=== PATIENT | female | born 1990 | race Caucasian/White ===

== ENCOUNTER 2019-09-05 10:46 | Emergency (ER) | payer BC ==
[~2019-09-05] VITALS: Ht 160 cm; Wt 58.5 kg
[2019-09-05 11:02] VITALS: BP 133/61; Ht 160 cm; Wt 58.5 kg
== END 2019-09-05 14:47 | disposition left against medical advice (07) ==
LOC: ED 10:46
DX: Z53.1 Procedure and treatment not carried out because of patient's decision for reasons of belief and group pressure (principal)

== ENCOUNTER 2019-09-05 15:52 | Inpatient (IN) | payer BC ==
[~2019-09-05] VITALS: Ht 160 cm; Wt 59.0 kg
[2019-09-05 16:21] LABS: BASOPHIL % 0.1 % (0-2); PLATELET COUNT 216 x10^3mcL (130-400)
[2019-09-05 16:33] LABS: CALCIUM 8.6 mg/dL (8.5-10.1); CARBON DIOXIDE 27.6 mmol/L (21-32); CHLORIDE SERUM 93 mmol/L (98-107); CREATININE SERUM 0.9 mg/dL (0.6-1.0); GFR1 > 60 mL/min; GLUCOSE SERUM 123 mg/dL (74-106); POTASSIUM SERUM 3.4 mmol/L (3.5-5.1); SODIUM SERUM 129 mmol/L (136-145)
[2019-09-05 16:38] LABS: ALBUMIN 4.3 g/dL (3.4-5.0); ALKALINE PHOSPHATASE 73 U/L (46-116); ALT/SGPT 25 U/L (14-59); AST/SGOT 17 U/L (15-37); BILIRUBIN TOTAL 0.7 mg/dL (0.20-1.00); TOTAL PROTEIN, SERUM 7.5 g/dL (6.4-8.2)
[2019-09-05 16:55] LABS: microscopic required? YES; urine erythrocyte NEGATIVE (NEGATIVE)
[2019-09-05 23:17] VITALS: BP 109/81
[2019-09-06 05:53] VITALS: BP 99/63
[2019-09-06 07:16] LABS: BASOPHIL % 0.3 % (0-2); PLATELET COUNT 170 x10^3mcL (130-400)
[2019-09-06 07:33] LABS: ALKALINE PHOSPHATASE 55 U/L (46-116); ALT/SGPT 19 U/L (14-59); AST/SGOT 15 U/L (15-37); BILIRUBIN TOTAL 0.7 mg/dL (0.20-1.00); CALCIUM 8.1 mg/dL (8.5-10.1); CARBON DIOXIDE 24.5 mmol/L (21-32); CHLORIDE SERUM 104 mmol/L (98-107); CREATININE SERUM 0.9 mg/dL (0.6-1.0); GFR1 > 60 mL/min; GLUCOSE SERUM 83 mg/dL (74-106); POTASSIUM SERUM 3.5 mmol/L (3.5-5.1); SODIUM SERUM 138 mmol/L (136-145)
[2019-09-06 07:34] LABS: ALBUMIN 3.3 g/dL (3.4-5.0); TOTAL PROTEIN, SERUM 6.1 g/dL (6.4-8.2)
[2019-09-06 08:04] VITALS: BP 115/79
[2019-09-06 16:21] VITALS: BP 101/67
[2019-09-06 19:17] VITALS: BP 103/63
[2019-09-07 05:37] VITALS: BP 105/72
[2019-09-07] MEDS ORDERED: ZOF4 PO (09:00)
[2019-09-07] MEDS ORDERED: NORCO1 TA2 PO (09:00)
[2019-09-07] MEDS ORDERED: FLOMAX0.4 MG PO (09:01)
[2019-09-07 09:06] VITALS: BP 100/62
[2019-09-07 12:38] VITALS: BP 100/67
[2019-09-07 15:47] VITALS: BP 105/78
[2019-09-07 16:21] VITALS: BP 109/72
[2019-09-07 20:06] VITALS: BP 112/69
[2019-09-08 04:58] VITALS: BP 104/68
[2019-09-08 08:13] VITALS: BP 104/65
[2019-09-08 13:05] VITALS: BP 105/78
== END 2019-09-08 14:32 | disposition home or self-care (01) | DRG 660 ==
LOC: ED 15:52 → MU 19:48
PROVIDERS: Emergency Medicine; Urology; ADMIT Internal Medicine Pulmonary Disease; ATTEND Internal Medicine Pulmonary Disease
PROC: 0T768DZ Dilation of Right Ureter with Intraluminal Device, Via Natural or Artificial Opening Endoscopic (ICD-10-PCS; 2019-09-07)
PROC: 0TC68ZZ Extirpation of Matter from Right Ureter, Via Natural or Artificial Opening Endoscopic (ICD-10-PCS; 2019-09-07)
PROC: BT1D1ZZ Fluoroscopy of Right Kidney, Ureter and Bladder using Low Osmolar Contrast (ICD-10-PCS; principal; 2019-09-07 13:00)
DX: N12 Tubulo-interstitial nephritis, not specified as acute or chronic (principal); E87.1 Hypo-osmolality and hyponatremia; E86.0 Dehydration; Z79.899 Other long term (current) drug therapy
CPT/HCPCS: C1758; C2625; G0378; J0696; J1885; J2250; J2270; J2405; J3010; J7030; J7050; J7060; J7120; Q9967